=== PATIENT | male | born 1975 | race Caucasian/White ===

== ENCOUNTER 2024-05-05 07:48 | Emergency (ER) | payer MEDICAID, SELFPAY ==
--- NOTE | 2024-05-05 07:53 | EKG_ITS ---
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
--- NOTE | 2024-05-05 08:04 | XR_ITS ---
Examination: PA lateral chest 2 views TECHNIQUE: Upright PA lateral chest 2 views Exam date and time: May 05, 2024 0808 hours INDICATIONS: Acute chest pain today. FINDINGS: Mild atelectasis in the lingular segment Normal heart size No pneumonia or pulmonary edema Mild osteopenia IMPRESSION: No pneumonia or pulmonary edema
--- NOTE | 2024-05-05 08:04 | PD.EDRME ---
Rapid Medical Screening Exam RME Arrival date/time: 05/05/24 07:48 49-year-old male presents emergency department today complaints of chest pain and dry heaving today patient reports that he has carotid artery disease patient reports he get stress test once a year Chief Complaint: Chest Pain
[2024-05-05 08:05] VITALS: BP 119/86; PULSE 83; RESP 18; TEMP 36.6; O2SAT 97; BMI 29.1
[2024-05-05 08:27] LABS: Basophils % (Auto) 1 % (0-2.5); Eosinophils # (Auto) 0.3 Thou/mm3 (0.0-0.5); Eosinophils % (Auto) 4 % (0-10); Hematocrit 44.3 % (41.0-53.0); Immature Granulocytes % (Auto) 0 % (0-0); Immature Granulocytes Auto 0.02 Thou/mm3 (0.00-0.00); Lymphocytes # (Auto) 1.9 Thou/mm3 (1.0-4.8); Lymphocytes % (Auto) 27 % (10-50); Mean Corpuscular HGB Conc 33.9 g/dl (31.0-37.0); Mean Corpuscular Hemoglobin 29.5 pg (25.0-35.0); Mean Corpuscular Volume 87 fL (80-100); Monocytes # (Auto) 0.6 Thou/mm3 (0.0-0.8); Monocytes % (Auto) 9 % (0-12); Neutrophils # (Auto) 4.1 Thou/mm3 (1.8-7.7); Neutrophils % (Auto) 59 % (37-80); Nucleated Red Blood Cell % 0 /100 WBC (0); Platelet Count 281 Thou/mm3 (140-440); RDW Standard Deviation 43.2 fL (35.1-43.9); Red Blood Count 5.09 Miln/mm3 (4.50-5.90); White Blood Count 6.9 Thou/mm3 (3.8-10.6)
[2024-05-05 08:42] LABS: B-Type Natriuretic Peptide 20 pg/mL (0-100)
[2024-05-05 08:44] LABS: Alanine Aminotransferase 22 U/L (10-49); Albumin, Serum 4.2 gm/dL (3.5-5.0); Albumin/Globulin Ratio 1.4 (1.2-2.2); Alkaline Phosphatase 108 U/L (46-116); Anion Gap 6 (7-16); Aspartate Amino Transferase 19 U/L (0-34); BUN/Creatinine Ratio 16 Ratio (12-20); Bilirubin,Total 0.4 mg/dL (0.3-1.2); Blood Urea Nitrogen 16 mg/dL (9-23); Calcium 9.4 mg/dL (8.3-10.6); Calcium (Corrected) 9.4 mg/dL (8.5-10.1); Carbon Dioxide 28.5 mMol/L (20.0-31.0); Chloride 112 mMol/L (98-107); Estimated Creatinine Clearance 96.7 mL/min (>60); Glucose 90 mg/dL (74-106); Lipase 47 U/L (12-53); Magnesium 2.1 mg/dL (1.6-2.6); Osmolality,Calculated 291 (275-295); Potassium 4.1 mMol/L (3.4-5.1); Sodium 146 mMol/L (136-145); Total Protein 7.2 gm/dL (5.7-8.2); Troponin I < 0.002 ng/mL (0.0-0.045); eGFR > 60 See Note
--- NOTE | 2024-05-05 09:50 | PC.NURSE ---
PATIENT SIGNED AMA PAPERWORK AT 0932 AND LEFT ER.
== END 2024-05-05 09:51 | disposition left against medical advice (07) ==
LOC: SERX 08:32
PROVIDERS: Nurse Practitioner Primary Care; Emergency Provider Emergency Medicine; PCP Nurse Practitioner Family
DX: R07.9 Chest pain, unspecified (principal); Z53.29 Procedure and treatment not carried out because of patient's decision for other reasons
CPT/HCPCS: 36415; 71046; 80053; 80307; 81001; 83690; 83735; 83880; 84484; 85025; 85610; 85730; 93005; 99281

== ENCOUNTER → 2024-08-20 | Outpatient (CLI) | payer MEDICAID, SELFPAY ==
--- NOTE | 2024-08-20 08:15 | XR_ITS ---
Examination: MRI of brain without intravenous contrast. MRI brain with intravenous contrast. Date and time of exam:August 20, 2024 0905 hours INDICATIONS: Altered mental status, significant white matter change consistent with demyelinating disease on brain MRI September 08, 2023 Technique: Multiple axial and sagittal images of the brain to been obtained. Siemens high-resolution 1.52 Agueda short bore scanner utilized. Sagittal sections, T1 weighted images, TR 500, TE 14, are performed. Axial sections proton-density and T2-weighted images have been obtained. Inversion recovery axial images, TR 9260, TE 111, TR 2500. Diffusion weighted images, axial sections, TR 4800, TE 128, B value 1000. Axial sections, ADC map, TR 4800, TE 128. Axial and coronal images were also obtained post 17 cc gadolinium administered intravenously. Findings:: Enlargement of the sella turcica is not present. The optic chiasm and infundibular stalk are not remarkable. There is no localized enlargement of the medulla or bry. Fourth ventricle and cerebellar tonsils appear normal in position. No subacute area of hemorrhage density is seen. Fourth ventricle is midline. Mass in the cerebellopontine angle region is not evident. 7th and 8th nerve complexes exhibit symmetry Globes are symmetrical Orbital musculature including medial lateral rectus muscles do not exhibit abnormality Increased white matter signal is again noted, stable punctate foci increased signal in the white matter Effacement of the cortical sulcal markings is not identified. Mass effect upon the ventricular system is not identified. Diffusion-weighted images demonstrate no focus of restricted diffusion Contrast images demonstrate no abnormal enhancement Impression: Stable punctate foci increased signal in the white matter, demyelinating disease pattern
--- NOTE | 2024-08-20 09:00 | XR_ITS ---
Examination: MRI cervical spine, without intravenous contrast. MRI cervical spine , with intravenous contrast. Exam date and time: August 20, 2024 0905 hours Comparison of April 2022 INDICATIONS: Stabbing neck pain beginning 2 years ago Technique: Multiple axial, sagittal and coronal images of the cervical spine have been obtained with the Siemens high-resolution 1.5 Agueda MRI scanner. Images obtained included T2 weighted fat suppressed sagittal sections, TR 3500, TE 46, T2 weighted coronal fat suppressed images, TR 3050, TE 84, T2-weighted transverse fat suppressed images, TR 30-60, TE 63, proton density transverse images, TR 4720, TE 46, and T1 weighted coronal images, TR 560, TE 13. Axial, sagittal and coronal images are obtained post intravenous injection 17 cc gadolinium. Findings: Adequate alignment cervical vertebral bodies No cervical fracture Intact odontoid Diffuse cervical disc sedation Mild disc narrowing C4-C5 C2-C3 no disc protrusion C3-C4 left uncinate process hypertrophy moderate left neural foraminal stenosis C4-C5 mild left neural foraminal stenosis C5-C6 mild left neural foraminal stenosis C6-C7 moderate bilateral neural foraminal stenosis C7-T1 no disc protrusion Postcontrast images demonstrate no abnormal osseous epidural or cervical cord enhancement On the precontrast images no definite increased signal in the cervical cord IMPRESSION: C3-C4 moderate left neural foraminal stenosis C6-C7 moderate bilateral neural foraminal stenosis
== END | disposition home or self-care (01) ==
LOC: SMRI 08:00
PROVIDERS: PCP Nurse Practitioner Family; Referring Provider Psychiatry & Neurology Neurology; Visit Provider Psychiatry & Neurology Neurology
DX: M48.02 Spinal stenosis, cervical region (principal); R90.82 White matter disease, unspecified
CPT/HCPCS: 70553; 72156; A9579